=== PATIENT | male | born 1990 | race Caucasian/White ===

== ENCOUNTER 2020-09-25 08:58 | Outpatient (CLI) | payer OTHER, SELFPAY ==
[2020-09-25 10:16] LABS: Semen Viscosity Not Increased (Not Increa.); Volume Semen 4.5 mL (1.5-5.0)
[2020-09-25 10:17] LABS: Liquefaction Semen Complete in 30 min. (<30 minutes); Semen Color Opaque (Grey-opaque); Semen Immotility 70 %; Semen Morphology Result to Follow; Semen Non-Progressive Motility 10 %; Semen Progressive Motility 20 % (>32); Semen Total Motility 30 (>40% (PM+NP)); Sperm Count 15.9 Mil/mL (60-150 million/mL)
[2020-09-29 22:21] LABS: Fructose, Semen 213 mg/dL (150-600)
== END 2020-09-25 08:59 | disposition home or self-care (01) ==
LOC: CHSLAB 09:02
PROVIDERS: PCP Family Medicine; Visit Provider Family Medicine
DX: N46.9 Male infertility, unspecified (principal)
CPT/HCPCS: 82757; 88160; 89320